=== PATIENT | female | born 1970 | race Caucasian/White ===

== ENCOUNTER → 2019-08-18 | Outpatient (CLI) | payer BC ==
--- NOTE | 2019-08-21 12:55 | CARD ---
MR#: [id number] Date of Study: 08/18/2019 Ordering Physician: TERRELL THURSTON, Referring Physician: TERRELL THURSTON, Tech: Deepthi East [facility] APPROVED REPORT EXAM: Two-dimensional and M-mode echocardiogram with Doppler and color Doppler. Other Information Quality : GoodHR: 61bpm Rhythm : NSR INDICATION SVT 2D DIMENSIONS RVDd3.2 (2.9-3.5cm)IVSd1.0 (0.7-1.1cm) Aortic Root(2D)3.0 (2.0-3.7cm)LVDd4.8 (3.9-5.9cm) LVOT Diameter2.0 (1.8-2.4cm)PWd0.8 (0.7-1.1cm) LVDs3.2 (2.5-4.0cm)FS (%) 33.3 % SV67.6 mlLVEF(%)61.8 (>50%) Aortic Valve AoV Peak Brent.131.8cm/Jake Peak GR.6.9mmHg LVOT Peak Brent.101.9cm/sAVA (VMAX)2.44cm2 Mitral Valve MV E Gmttrani04.3cm/sMV DECEL GKCY078sy MV A Rcayomkq33.4cm/sE/A Ratio0.8 MV A Nnspvdlm068tt Pulmonary Valve PV Peak Htnmvqlu07.1cm/s Tricuspid Valve TR P. Nolurvbs257iq/sRAP BCDFITYL4knIt TR Peak Gr.26gvJsHIOQ96ixCn Pulmonary Vein S1 Nofnoddn35.5cm/sD2 Scyjevum59.4cm/s LEFT VENTRICLE The left ventricle is normal size. The left ventricular systolic function is normal. The Ejection Fra ction is 55-60%. There is normal LV segmental wall motion. Transmitral Doppler flow pattern is Grade I-abnormal relaxation pattern. RIGHT VENTRICLE The right ventricle is normal size. The right ventricular systolic function is normal. ATRIA The left atrium size is normal. The right atrium size is normal. The interatrial septum is intact wit h no evidence for an atrial septal defect or patent foramen ovale as noted on 2-D or Doppler imaging. AORTIC VALVE The aortic valve is normal in structure and function. No aortic regurgitation. There is no significan t aortic valvular stenosis. MITRAL VALVE The mitral valve is normal in structure and function. There is no mitral valve stenosis. Trace mitral regurgitation. TRICUSPID VALVE The tricuspid valve is normal in structure and function. Mild tricuspid regurgitation. Estimated PAP is 20-25mmHg. There is no tricuspid valve stenosis. PULMONIC VALVE The pulmonary valve is normal in structure and function. Trace pulmonic valvular regurgitation. GREAT VESSELS The aortic root is normal in size. The ascending aorta is normal in size. The IVC is normal in size a nd collapses >50% with inspiration. PERICARDIAL EFFUSION There is no evidence of significant pericardial effusion. Critical Notification Critical Value: No <Conclusion> The left ventricular systolic function is normal. The Ejection Fraction is 55-60%. There is normal LV segmental wall motion. Transmitral Doppler flow pattern is Grade I-abnormal relaxation pattern. Trace mitral regurgitation. Mild tricuspid regurgitation. Estimated PAP is 20-25mmHg. There is no evidence of significant pericardial effusion. Signed by : Cristian Nugent, Electronically Approved : 08/21/2019 12:54:50
== END | disposition home or self-care (01) ==
LOC: ECHO 13:34
PROVIDERS: ATTEND Internal Medicine Cardiovascular Disease
DX: I36.1 Nonrheumatic tricuspid (valve) insufficiency (principal); I47.1 Supraventricular tachycardia
CPT/HCPCS: 93306

== ENCOUNTER → 2019-08-21 | Outpatient (CLI) | payer BC ==
--- NOTE | 2019-08-21 12:09 | RAD ---
MR#: [id number] Date of Study: 08/21/2019 Ordering Physician: TERRELL THURSTON, Referring Physician: YESSI MCKEON Tech: PAPO San, MARIO (R) (N) APPROVED REPORT Test Type: Exercise Stress Nurse/Tech: Aylin Ozuna R.N. Test Indications: chest pain, tachy, Cardiac History: none Medications: see ehr Medical History: see ehr Resting ECG: sr Resting Heart Rate: 70 bpm Resting Blood Pressure: 117/69mmHg Pretest Chest Pain: No chest pain Nurse/Tech Notes lungs cta, heart tones regular Consent: The procedure was explained to the patient in lay terms. Informed consent was witnessed. Avel eout was entered into [employer]. History and Stress Test performed by PAPO San, MARIO (R) (N) Stress Symptoms No chest pain or symptoms. POST EXERCISE Reason for Termination: Reached target heart rate Target HR: Yes Max HR: 155 bpm 90% of Maximum Predicted HR: 172 bpm Exercise duration: 7:14 min:sec, 3 Stage Exercise capacity: 10.0METs Max Blood Pressure: 135/77mmHg Blood Pressure response to exercise: Normal blood pressure response during stress. Heart Rate response to exercise: normal Chest Pain: No. Arrhythmia: No. ST Change: No. INTERPRETATION Stress EKG Conclusion: Baseline EKG showed sinus rhythm. No ischemic changes at peak stress. No arr hythmias. Imaging Protocol IMAGE PROTOCOL: Rest Tc-99m/stress Tc-99m 1 day Rest: Stress: Viability: Radiopharm.Tc99m FdcabduuvDz60e Sestamibi Eyna78rLg 31mCi Img Date 08/21/2019 08/21/2019 Inj-Img Lpjb01gve. 60min. Rest Admin Site:IV - Left AntecubitalAdministrator:VIANEY Colunga (R)(N) Stress Admin Site: IV - Left AntecubitalAdministrator: VIANEY Colunga (R)(N) STRESS DATA End Diast. Vol.54.0mlAv. Heart Rate84.0bpm End Syst. Vol.8.0mlCO Index BSA0.0L/min Myocardial Tust211.0gEject. Wxmccdjz26.0% Stress Rates Pk. Fill Rate3.68EDV/secLVtime Pk. Fill 173.22msec Pk. Empty Rate5.72ESV/secLVtime Pk. Ghxwa661.25msec 1/3 Pk. Fill1.13EDV/sec Stress Scores Regional WT0.00Summed WT0.00 Regional WM0.00Summed WM0.00 Study quality was good. Left Ventricular size was Normal at Rest and Stress. Lung uptake was . Left Ventricular ejection fraction is 85%. The rest and stress images show normal perfusion, normal contraction and thickening. LV Perf. Quant 17 Seg. SSS0.00 17 Seg. SRS3.00 17 Seg. SDS0.00 Stress Defect Extent (% LAD)0.00Rest Defect Extent (% LAD)0.60Rev. Defect Extent (% LAD)0.00 Stress Defect Extent (% LCX) 0.00Rest Defect Extent (% LCX)0.00Rev. Defect Extent (% LCX)0.00 Stress Defect Extent (% RCA)0.00Rest Defect Extent (% RCA)0.00Rev. Defect Extent (% RCA)0.00 Stress Defect Extent (% CHELSEA)0.00Rest Defect Extent (% CHELSEA)0.20Rev. Defect Extent (% CHELSEA)0.00 Conclusion 1. Treadmill exercise cardioisotope stress test did not show any evidence of ischemia or infarct. 2. Normal left ventricular systolic function with ejection fraction calculated at 85%. 3. Low risk for cardiac events. Signed by : Cristian Nugent, Electronically Approved : 08/21/2019 12:08:49
== END | disposition home or self-care (01) ==
LOC: NM 08:36 → EDUNIT# 09:30
PROVIDERS: ATTEND Internal Medicine Cardiovascular Disease
DX: I47.1 Supraventricular tachycardia (principal); R07.9 Chest pain, unspecified; Z88.8 Allergy status to other drugs, medicaments and biological substances; Z82.49 Family history of ischemic heart disease and other diseases of the circulatory system
CPT/HCPCS: 78452; 93017; A9500